=== PATIENT | female | born 1965 | race Caucasian/White ===

== ENCOUNTER → 2019-05-01 | Day surgery (SDC) | payer OTHER ==
[~2019-05-01] MED LIST: ANESTHESIA TRAY IN PYXIS 1 EA TRAY MC ONE; FAMOTIDINE/PF INJ 20 MG/2 ML VIAL IV ONE; FENTANYL PF 250MCG/5ML AMPUL ONE; HYDROCODONE/APAP 5/325MG 1 EACH TABLET ONE; MIDAZOLAM HCL 2 MG/2ML VIAL ONE; SUCCINYLCHOLINE CHLORIDE 20 MG/ML VIAL ONE
== END | disposition home or self-care (01) ==
LOC: DS 06:16
PROVIDERS: ATTEND Specialist
DX: M24.612 Ankylosis, left shoulder (principal); K21.9 Gastro-esophageal reflux disease without esophagitis
CPT/HCPCS: 23700; J0330 ×2; J2250; J2405; J2704; J2710; J2765; J3010; J3490 ×3

== ENCOUNTER 2020-05-01 14:37 | Outpatient (CLI) | payer OTHER | END 2020-05-01 23:59 | disposition home or self-care (01) | LOC: LAB 14:37 | PROVIDERS: ATTEND Specialist | DX: Z01.812 Encounter for preprocedural laboratory examination (principal); Z20.822 Contact with and (suspected) exposure to COVID-19 | CPT/HCPCS: 87426; C9803 ×2; U0003 ==

== ENCOUNTER 2020-05-06 06:05 | Day surgery (SDC) | payer OTHER ==
[2020-05-06] MEDS ORDERED: ANESTHESIA TRAY IN PYXIS 1 EA TRAY MC ONE (06:33)
[2020-05-06] MEDS ORDERED: EPINEPHRINE (1:1000) 1 MG/ML AMPUL ONE (06:33)
[2020-05-06] MEDS ORDERED: BUPIVACAINE 0.25% 75 MG/30 ML VIAL ONE (06:33)
[2020-05-06] MEDS ORDERED: LIDOCAINE 1% INJ 50 ML MDV IJ ONE (06:37)
[2020-05-06] MEDS ORDERED: SEVOFLURANE 250 ML BOTTLE IH ONE (06:39)
[2020-05-06] MEDS ORDERED: SCOPOLAMINE PATCH 1 MG/72HR TD ONE (06:39)
[2020-05-06] MEDS ORDERED: FENTANYL PF 100MCG/2ML AMPUL ONE (06:39)
[2020-05-06] MEDS ORDERED: methylPREDNISolone ACETATE 80 MG/ML VIAL ONE (06:52)
[2020-05-06] MEDS ORDERED: FLUMAZENIL 0.5 MG VIAL ONE (07:51)
[2020-05-06] MEDS ORDERED: MENTHOL/CETYLPYRD (CEPACOL) 1 LOZ LOZENGE ONE (08:03)
== END 2020-05-06 09:45 | disposition home or self-care (01) ==
LOC: DS 06:05
PROVIDERS: ATTEND Specialist
DX: M75.102 Unspecified rotator cuff tear or rupture of left shoulder, not specified as traumatic (principal); M94.212 Chondromalacia, left shoulder
CPT/HCPCS: 29823; A4217; A4565; A6253; A6402; J0171; J1040; J1100; J1885; J2704; J3490 ×3; J3010